=== PATIENT | female | born 1990 | race Caucasian/White ===

== ENCOUNTER 2017-11-28 17:30 | Outpatient (CLI) | payer MEDICAID ==
[2017-11-28] MEDS: LACTATED RINGER'S 1,000 ML IV (18:08)
[2017-11-28 18:31] LABS: ADD MAN DIFF? NO
[2017-11-28 18:37] LABS: BASOPHILS % 0.6 % (0.0-2.0); EOSINOPHILS # 0.1 10^3/ul (0.0-0.5); EOSINOPHILS % 1.7 % (0.0-7.0); HEMATOCRIT 34.5 % (37.0-47.0); HEMOGLOBIN 11.9 g/dl (12.0-16.0); LYMPHOCYTES # 1.8 10^3/ul (0.8-2.9); LYMPHOCYTES % 28.2 % (15.0-51.0); MEAN CORPUSCULAR HEMOGLOBIN 30.7 pg (29.0-33.0); MEAN CORPUSCULAR HGB CONC 34.5 g/dl (32.0-37.0); MEAN CORPUSCULAR VOLUME 89.1 fl (82.0-101.0); MONOCYTE # 0.5 10^3/ul (0.3-0.9); MONOCYTES % 7.7 % (0.0-11.0); NEUTROPHILS % 61.3 % (39.0-77.0); PLATELET COUNT 197 10^3/UL (140-415); RED BLOOD COUNT 3.87 10^6/ul (4.20-5.40); RED CELL DISTRIBUTION WIDTH 12.2 % (11.5-14.5)
[2017-11-28 18:37] LABS: WHITE BLOOD COUNT 6.5 10^3/ul (4.8-10.8)
[2017-11-28 18:54] LABS: ADD UMIC NO; UR ASCORBIC ACID NEGATIVE (NEGATIVE); UR BILIRUBIN (Dip) NEGATIVE (NEGATIVE); UR BLOOD (Dip) NEGATIVE (NEGATIVE); UR CLARITY CLEAR (CLEAR); UR COLOR COLORLESS (YELLOW); UR GLUCOSE (Dip) NEGATIVE (NEGATIVE); UR KETONES (Dip) NEGATIVE (NEGATIVE); UR LEUKOCYTE ESTERASE (Dip) NEGATIVE Leu/ul (NEGATIVE); UR NITRITE (Dip) NEGATIVE (NEGATIVE); UR SPECIFIC GRAVITY (Dip) 1.003 (1.003-1.030); UR TOTAL PROTEIN (Dip) NEGATIVE (NEGATIVE); UR UROBILINOGEN (Dip) NEGATIVE (NEGATIVE)
[2017-11-28 19:05] LABS: ALANINE AMINOTRANSFERASE 19 IU/L (13-69); ALBUMIN 3.3 g/dl (3.3-4.9); ALBUMIN/GLOBULIN RATIO 0.89; ALKALINE PHOSPHATASE 174 IU/L (42-121); AMYLASE 96 U/L (11-123); ANION GAP 14 (8-16); ASPARTATE AMINO TRANSFERASE 22 IU/L (15-46); BILIRUBIN,INDIRECT 0.1 mg/dl (0-1.1); BILIRUBIN,TOTAL 0.1 mg/dl (0.2-1.3); BLOOD UREA NITROGEN 8 mg/dl (7-20); CALCIUM 8.6 mg/dl (8.4-10.2); CARBON DIOXIDE 21 mmol/L (21-31); CHLORIDE 107 mmol/L (97-110); CREATININE 0.47 mg/dl (0.44-1.00); GLUCOSE 81 mg/dl (70-220); LIPASE 140 U/L (23-300); POTASSIUM 3.9 mmol/L (3.5-5.1); SODIUM 138 mmol/L (135-144)
== END 2017-11-28 19:55 | disposition home or self-care (01) ==
LOC: OBT 17:30 → L-D 17:31 → OBT 19:55
DX: O26.893 Other specified pregnancy related conditions, third trimester (principal); Z3A.35 35 weeks gestation of pregnancy; R42 Dizziness and giddiness; R11.0 Nausea
CPT/HCPCS: 80053; 81003; 82150; 83690; 85025

== ENCOUNTER 2017-12-28 17:17 | Outpatient (CLI) | payer MEDICAID | END 2017-12-28 20:35 | disposition home or self-care (01) | LOC: OBT 17:17 → L-D 17:18 → OBT 20:35 | DX: O48.0 Post-term pregnancy (principal); Z3A.40 40 weeks gestation of pregnancy | CPT/HCPCS: 76815; 76818 ==

== ENCOUNTER 2017-12-29 05:45 | Inpatient (IN) | payer MEDICAID ==
[2017-12-29 06:07] LABS: URINE BLOOD (Dip) POC Negative (NEGATIVE); URINE GLUCOSE (Dip) POC Negative (NEGATIVE); URINE KETONES (Dip) POC Negative (NEGATIVE); URINE LEUKOCYTE EST (Dip) POC Negative (NEGATIVE); URINE NITRITE (Dip) POC Negative (NEGATIVE); URINE TOTAL PROTEIN POC Negative (NEGATIVE)
[2017-12-29 06:41] LABS: ADD UMIC NO; UR ASCORBIC ACID NEGATIVE (NEGATIVE); UR BILIRUBIN (Dip) NEGATIVE (NEGATIVE); UR BLOOD (Dip) NEGATIVE (NEGATIVE); UR CLARITY CLEAR (CLEAR); UR COLOR STRAW (YELLOW); UR GLUCOSE (Dip) NEGATIVE (NEGATIVE); UR KETONES (Dip) NEGATIVE (NEGATIVE); UR LEUKOCYTE ESTERASE (Dip) NEGATIVE Leu/ul (NEGATIVE); UR NITRITE (Dip) NEGATIVE (NEGATIVE); UR SPECIFIC GRAVITY (Dip) 1.006 (1.003-1.030); UR TOTAL PROTEIN (Dip) NEGATIVE (NEGATIVE); UR UROBILINOGEN (Dip) NEGATIVE (NEGATIVE)
[2017-12-29] MEDS ORDERED: OXYTOCIN 30 UNITS/LR 500 ML IV ×2 (07:00→16:00)
[2017-12-29] MEDS ORDERED: METHYLERGONOVINE 0.2 MG INJ IM ×2 (07:00→16:00)
[2017-12-29] MEDS ORDERED: MISOPROSTOL 200 MCG TAB PR ×2 (07:00→16:00)
[2017-12-29] MEDS ORDERED: CARBOPROST 250 MCG INJ IM ×2 (07:00→16:00)
[2017-12-29] MEDS ORDERED: LIDOCAINE 1% (MPF) 30 ML INJ INJ (07:00)
[2017-12-29] MEDS ORDERED: IBUPROFEN 600 MG TAB PO (07:00)
[2017-12-29] MEDS: LACTATED RINGER'S 1,000 ML IV ×3 (07:41→11:07)
[2017-12-29] MEDS: BUTORPHANOL 2 MG INJ IV (07:42)
[2017-12-29 08:53] LABS: ADD MAN DIFF? NO
[2017-12-29 08:56] LABS: BASOPHILS % 0.4 % (0.0-2.0); EOSINOPHILS # 0.1 10^3/ul (0.0-0.5); EOSINOPHILS % 1.1 % (0.0-7.0); HEMATOCRIT 36.1 % (37.0-47.0); HEMOGLOBIN 12.1 g/dl (12.0-16.0); LYMPHOCYTES % 26.7 % (15.0-51.0); MEAN CORPUSCULAR HGB CONC 33.5 g/dl (32.0-37.0); MEAN CORPUSCULAR VOLUME 89.6 fl (82.0-101.0); MEAN PLATELET VOLUME 11.5 fl (7.4-10.4); MONOCYTE # 0.6 10^3/ul (0.3-0.9); MONOCYTES % 7.7 % (0.0-11.0); NEUTROPHIL # 4.8 10^3/ul (1.6-7.5); NEUTROPHILS % 63.7 % (39.0-77.0); PLATELET COUNT 190 10^3/UL (140-415); RED BLOOD COUNT 4.03 10^6/ul (4.20-5.40); RED CELL DISTRIBUTION WIDTH 12.7 % (11.5-14.5)
[2017-12-29 08:56] LABS: WHITE BLOOD COUNT 7.5 10^3/ul (4.8-10.8)
[2017-12-29 09:18] LABS: INR 0.96; PARTIAL THROMBOPLASTIN TIME 30.7 Sec (25.0-35.0); PROTIME 12.9 Sec (11.9-14.9)
[2017-12-29 09:20] LABS: URIC ACID 4.3 mg/dl (3.1-7.9)
[2017-12-29] MEDS ORDERED: FENTAnyl 2MCG/ML-ROPIV 0.2% 100 ML (09:20)
[2017-12-29 09:22] LABS: ALANINE AMINOTRANSFERASE 26 IU/L (13-69); ALBUMIN 3.4 g/dl (3.3-4.9); ALKALINE PHOSPHATASE 238 IU/L (42-121); ANION GAP 12 (8-16); ASPARTATE AMINO TRANSFERASE 21 IU/L (15-46); BILIRUBIN,INDIRECT 0.2 mg/dl (0-1.1); BILIRUBIN,TOTAL 0.2 mg/dl (0.2-1.3); BLOOD UREA NITROGEN 10 mg/dl (7-20); CALCIUM 9.1 mg/dl (8.4-10.2); CARBON DIOXIDE 25 mmol/L (21-31); CHLORIDE 106 mmol/L (97-110); CREATININE 0.53 mg/dl (0.44-1.00); GLUCOSE 79 mg/dl (70-220); POTASSIUM 4.2 mmol/L (3.5-5.1); SODIUM 139 mmol/L (135-144); TOTAL PROTEIN 6.8 g/dl (6.1-8.1)
[2017-12-29] MEDS ORDERED: NALOXONE (0.4 MG/ML) INJ IV (10:00)
[2017-12-29] MEDS ORDERED: ONDANSETRON 4 MG INJ IV (10:00)
[2017-12-29] MEDS ORDERED: DIPHENHYDRAMINE 50 MG INJ IV (10:00)
[2017-12-29] MEDS: FENTAnyl 2MCG/ML-ROPIV 0.2% 100 ML BAG EPI (11:07)
[2017-12-29] MEDS: OXYTOCIN 30 UNITS/LR 500 ML IV ×2 (13:00→13:30)
[2017-12-29 15:04] LABS: RAPID PLASMA REAGIN NONREACTIVE (NR)
[2017-12-29] MEDS ORDERED: HYDROCODONE/APAP (5/325) TAB PO (16:00)
[2017-12-29] MEDS ORDERED: DIBUCAINE 1% 30 GM OINT PR (16:00)
[2017-12-29] MEDS: BENZOCAINE 20% 56 ML SPRAY TOP (18:03)
[2017-12-29] MEDS: IBUPROFEN 600 MG TAB PO ×2 (18:04→23:39)
[2017-12-29] MEDS: WITCH HAZEL/GLYCERIN PAD PR (18:04)
[2017-12-29] MEDS: LANOLIN 7 GM TUBE TOP (18:04)
[2017-12-29] MEDS: LACTATED RINGER'S 1,000 ML IV* ×2 (18:05→23:34)
[2017-12-29] MEDS: SENNA/DOCUSATE NA (8.6MG/50MG) TAB PO (20:28)
[2017-12-30] MEDS: IBUPROFEN 600 MG TAB PO ×4 (05:47→23:50)
[2017-12-30] MEDS: LACTATED RINGER'S 1,000 ML IV* ×3 (07:34→23:34)
[2017-12-30] MEDS: ACETAMINOPHEN 325 MG TAB PO (09:05)
[2017-12-30] MEDS: SENNA/DOCUSATE NA (8.6MG/50MG) TAB PO ×2 (09:05→21:38)
[2017-12-30 11:08] LABS: ADD MAN DIFF? NO
[2017-12-30 11:12] LABS: BASOPHILS % 0.4 % (0.0-2.0); EOSINOPHILS # 0.1 10^3/ul (0.0-0.5); EOSINOPHILS % 1.4 % (0.0-7.0); HEMATOCRIT 34.3 % (37.0-47.0); HEMOGLOBIN 11.7 g/dl (12.0-16.0); LYMPHOCYTES # 1.9 10^3/ul (0.8-2.9); LYMPHOCYTES % 22.7 % (15.0-51.0); MEAN CORPUSCULAR HEMOGLOBIN 30.6 pg (29.0-33.0); MEAN CORPUSCULAR HGB CONC 34.1 g/dl (32.0-37.0); MEAN CORPUSCULAR VOLUME 89.8 fl (82.0-101.0); MEAN PLATELET VOLUME 11.3 fl (7.4-10.4); MONOCYTE # 0.5 10^3/ul (0.3-0.9); MONOCYTES % 5.7 % (0.0-11.0); NEUTROPHIL # 5.6 10^3/ul (1.6-7.5); NEUTROPHILS % 69.2 % (39.0-77.0); PLATELET COUNT 189 10^3/UL (140-415); RED BLOOD COUNT 3.82 10^6/ul (4.20-5.40)
[2017-12-30 11:12] LABS: WHITE BLOOD COUNT 8.1 10^3/ul (4.8-10.8)
[2017-12-31] MEDS: ACETAMINOPHEN 325 MG TAB PO (02:57)
[2017-12-31] MEDS: IBUPROFEN 600 MG TAB PO ×2 (05:41→11:40)
[2017-12-31] MEDS: SENNA/DOCUSATE NA (8.6MG/50MG) TAB PO (09:18)
[2017-12-31] MEDS: DIPHTH/TET/ACEL PERTUSS (ADULT) 0.5 ML VIAL IM* (15:20)
== END 2017-12-31 16:40 | disposition home or self-care (01) | DRG 775 ==
LOC: OBT 05:45 → L-D 05:45 → OBT 06:30 → L-D 06:30 → PP1 17:43
PROC: 10E0XZZ Delivery of Products of Conception, External Approach (ICD-10-PCS; principal; 2017-12-29)
PROC: 4A1HXCZ Monitoring of Products of Conception, Cardiac Rate, External Approach (ICD-10-PCS; 2017-12-29)
DX: O48.0 Post-term pregnancy (principal); O69.81X0 Labor and delivery complicated by cord around neck, without compression, not applicable or unspecified; Z3A.40 40 weeks gestation of pregnancy; Z37.0 Single live birth
CPT/HCPCS: 62319; 80053; 81003; 84560; 85025; 85610; 85730; 86592; 86850; 86900; 86901; 90715